=== PATIENT | female | born 1970 | race Two or more races ===

== ENCOUNTER 2018-12-22 08:15 | Emergency (ER) | payer OTHER ==
--- NOTE | 2018-12-22 08:19 | EDPHY ---
H & P Time Seen by Provider: 12/22/18 08:19 HPI/ROS: Chief complaint. Nausea, vomiting, syncope HPI. Patient 48-year-old female here by EMS. She had a syncopal episode today. On December 17 she saw her PCP for cough, sweating, chills, fever. She was diagnosed with pneumonia started on Zithromax. Today was her 1st day back at work. She was feeling slightly dizzy. At work she developed some crampy mid abdominal pain went to the bathroom had diarrhea. She got back to her desk and then again had to have diarrhea with some crampy abdominal pain. She was feeling lightheaded. She then vomited and sitting at her desk she continued to feel lightheaded and then had a passing out episode. She awoke on the floor next to her desk. She is not injured. She had no chest pain or shortness of breath. She has no abdominal pain now. ROS 10 systems were reviewed and negative with the exception of the elements mentioned in the history of present illness Past Medical/Surgical History: SVT with ablation, gastric bypass, appendectomy, hysterectomy Social History: , nonsmoker, no alcohol Smoking Status: Never smoked Physical Exam: General Appearance: Alert pleasant well-developed female mild distress. Vital signs are stable Eyes: Pupils equal and round no pallor or injection. ENT, Mouth: Mucous membranes are moist. Respiratory: There are no retractions, lungs are clear to auscultation. Cardiovascular: Regular rate and rhythm. Gastrointestinal: Abdomen is soft and nontender, no masses, bowel sounds normal. Neurological: Awake and alert, sensory and motor exams grossly normal. Skin: Warm and dry, no rashes. Musculoskeletal: Neck is supple nontender. Extremities symmetrical, full range of motion. Psychiatric: Patient is oriented X 3, there is no agitation. Constitutional: Initial Vital Signs Temperature (C) 36.9 C 12/22/18 08:18 Heart Rate 61 12/22/18 08:18 Respiratory Rate 16 12/22/18 08:18 Blood Pressure 128/90 H 12/22/18 08:18 O2 Sat (%) 99 12/22/18 08:18 O2 Delivery Mode Room Air Allergies/Adverse Reactions: hydromorphone [From Dilaudid] Allergy (Verified 12/22/18 08:21) metronidazole [From Flagyl] Allergy (Verified 12/22/18 08:21) Home Medications: Medication Instructions Recorded Bp/Diuretic Medication 06/06/10 Paxil 06/06/10 Percocet 06/06/10 Trazadone 06/06/10 Atenolol 12/22/18 Lisinopril 12/22/18 Medical Decision Making - Diagnostics EKG Interpretation: EKG interpreted by me shows normal sinus rhythm with normal interval and axis. QRS is normal there is no significant ST elevation or depression. There is no arrhythmia. Rate is 57 Imaging Results: Imaging Impressions Chest X-Ray 12/22/18 08:23 Impression: Normal. Chest x-ray interpreted by me is normal Procedures: IV normal saline, Zofran ED Course/Re-evaluation: Initial troponin was slightly at the high end of normal range at 0.07. Repeat is 0.01. Patient and I discussed imaging lab EKG findings. We discussed treatment plan including criteria for return importance of follow-up and further evaluation. She expresses understanding and agreement Patient feels well on re-evaluation Differential Diagnosis: Syncope and I considered cardiac etiology. She has been sick and not really drinking fluids. It is probably volume depletion as a result. - Data Points Laboratory Results: Laboratory Results 12/22/18 08:15 12/22/18 08:15 12/22/18 12/22/18 12/22/18 10:25 08:31 08:15 WBC RBC Hgb Hct MCV MCH MCHC RDW Plt Count MPV Neut % (Auto) Lymph % (Auto) [place] % (Auto) Eos % (Auto) Baso % (Auto) Nucleat RBC Rel Count Absolute Neuts (auto) Absolute Lymphs (auto) Absolute Monos (auto) Absolute Eos (auto) Absolute Basos (auto) Absolute Nucleated RBC Immature Gran % Immature Gran # Sodium 138 mEq/L mEq/L (135-145) Potassium 4.2 mEq/L mEq/L (3.5-5.2) Chloride 104 mEq/L mEq/L (97-110) Carbon Dioxide 24 mEq/l mEq/l (22-31) Anion Gap 10 mEq/L mEq/L (6-14) BUN 26 mg/dL H mg/dL (7-23) Creatinine 1.2 mg/dL H mg/dL (0.6-1.0) Estimated GFR 48 Glucose 112 mg/dL H mg/dL (70-100) Calcium 9.7 mg/dL mg/dL (8.5-10.4) POC Troponin I 0.01 ng/mL ng/mL 0.07 ng/mL ng/mL (0.00-0.08) (0.00-0.08) Specimen Hemolysis 110 12/22/18 08:15 WBC 5.27 10^3/uL 10^3/uL (3.80-9.50) RBC 5.41 10^6/uL H 10^6/uL (4.18-5.33) Hgb 13.9 g/dL g/dL (12.6-16.3) Hct 43.8 % % (38.0-47.0) MCV 81.0 fL L fL (81.5-99.8) MCH 25.7 pg L pg (27.9-34.1) MCHC 31.7 g/dL L g/dL (32.4-36.7) RDW 14.3 % % (11.5-15.2) Plt Count 213 10^3/uL 10^3/uL (150-400) MPV 11.3 fL fL (8.7-11.7) Neut % (Auto) 45.5 % % (39.3-74.2) Lymph % (Auto) 42.7 % % (15.0-45.0) [place] % (Auto) 7.2 % % (4.5-13.0) Eos % (Auto) 3.6 % % (0.6-7.6) Baso % (Auto) 0.6 % % (0.3-1.7) Nucleat RBC Rel Count 0.0 % % (0.0-0.2) Absolute Neuts (auto) 2.40 10^3/uL 10^3/uL (1.70-6.50) Absolute Lymphs (auto) 2.25 10^3/uL 10^3/uL (1.00-3.00) Absolute Monos (auto) 0.38 10^3/uL 10^3/uL (0.30-0.80) Absolute Eos (auto) 0.19 10^3/uL 10^3/uL (0.03-0.40) Absolute Basos (auto) 0.03 10^3/uL 10^3/uL (0.02-0.10) Absolute Nucleated RBC 0.00 10^3/uL 10^3/uL (0-0.01) Immature Gran % 0.4 % % (0.0-1.1) Immature Gran # 0.02 10^3/uL 10^3/uL (0.00-0.10) Sodium Potassium Chloride Carbon Dioxide Anion Gap BUN Creatinine Estimated GFR Glucose Calcium POC Troponin I Specimen Hemolysis Medications Given: Discontinued Medications Acetaminophen (Tylenol) 1,000 mg PO EDNOW ONE Stop: 12/22/18 10:24 Last Admin: 12/22/18 10:25 Dose: 1,000 mg Sodium Chloride (Ns) 1,000 mls @ 0 mls/hr IV EDNOW ONE; Wide Open PRN Reason: Protocol Stop: 12/22/18 08:24 Last Admin: 12/22/18 08:29 Dose: 1,000 mls Ketorolac Tromethamine (Toradol) 15 mg IVP EDNOW ONE Stop: 12/22/18 10:18 Last Admin: 12/22/18 10:20 Dose: Not Given Ondansetron HCl (Zofran) 4 mg IVP EDNOW ONE Stop: 12/22/18 08:25 Last Admin: 12/22/18 08:29 Dose: 4 mg Point of Care Test Results: Chemistry 12/22/18 12/22/18 10:25 08:31 POC Troponin I 0.01 ng/mL ng/mL 0.07 ng/mL ng/mL (0.00-0.08) (0.00-0.08) Departure - Departure Disposition: Home, Routine, Self-Care Clinical Impression: Syncope Qualifiers: Syncope type: unspecified Qualified Code(s): R55 - Syncope and collapse Condition: Good Instructions: Syncope (ED) Additional Instructions: Easy activity today. Drink plenty of fluids and stay hydrated Return for chest discomfort, trouble breathing, another passing out episode Finish your antibiotics Re-evaluation by Cardiology. Referrals: Patient,NotPresent [Unknown] - As per Instructions Barry Samuel MD [Medical Doctor] - 2-3 days, call for appt. Stand Alone Forms: Work Excuse
[2018-12-22] MEDS ORDERED: NS 1,000 ML IV ONE (08:23)
[2018-12-22] MEDS ORDERED: ONDANSETRON 4 MG/2 ML VIAL IVP ONE (08:24)
[2018-12-22 08:33] LABS: PLATELET COUNT 213 10^3/uL (150-400)
[2018-12-22] MEDS ORDERED: KETOROLAC 15 MG/1 ML SDV ONE (10:17)
[2018-12-22] MEDS ORDERED: KETOROLAC 15 MG/1 ML SDV IVP ONE (10:17)
[2018-12-22] MEDS ORDERED: ACETAMINOPHEN 500 MG TAB PO ONE (10:23)
[2018-12-22 10:58] VITALS: BP 110/78
--- NOTE | 2018-12-22 15:07 | CPEKG ---
Test Reason : OPEN Blood Pressure : / mmHG Vent. Rate : 057 BPM Atrial Rate : 056 BPM P-R Int : 192 ms QRS Dur : 085 ms QT Int : 413 ms P-R-T Axes : 052 022 028 degrees QTc Int : 402 ms Sinus rhythm Confirmed by Teresa Lr ([id number]) on 12/22/2018 3:07:08 PM Referred By: TERESA LR Confirmed By:Teresa Lr
== END 2018-12-22 11:02 | disposition home or self-care (01) ==
LOC: EDUNIT#
DX: R55 Syncope and collapse (principal); E86.9 Volume depletion, unspecified; Z90.710 Acquired absence of both cervix and uterus
CPT/HCPCS: 84484-ER; 96374; J1885; J2405